=== PATIENT | female | born 1985 | race Caucasian/White ===

== ENCOUNTER 2018-04-01 15:37 | Inpatient (IN) | payer MEDICAID ==
[2018-04-01 18:42] LABS: ADD MAN DIFF? NO
[2018-04-01] MEDS ORDERED: AMPICILLIN 2 GM/NS (PMX) 100 ML (18:45)
[2018-04-01 18:47] LABS: BASOPHILS % 0.2 % (0.0-2.0); EOSINOPHILS % 0.3 % (0.0-7.0); HEMOGLOBIN 13.2 g/dl (12.0-16.0); LYMPHOCYTES # 2.2 10^3/ul (0.8-2.9); LYMPHOCYTES % 16.7 % (15.0-51.0); MEAN CORPUSCULAR HGB CONC 33.8 g/dl (32.0-37.0); MEAN CORPUSCULAR VOLUME 82.6 fl (82.0-101.0); MEAN PLATELET VOLUME 10.6 fl (7.4-10.4); MONOCYTES % 7.4 % (0.0-11.0); NEUTROPHIL # 9.7 10^3/ul (1.6-7.5); NEUTROPHILS % 74.9 % (39.0-77.0); PLATELET COUNT 376 10^3/UL (140-415); RED BLOOD COUNT 4.72 10^6/ul (4.20-5.40); RED CELL DISTRIBUTION WIDTH 13.2 % (11.5-14.5)
[2018-04-01] MEDS: LACTATED RINGER'S 1,000 ML IV (18:49)
[2018-04-01] MEDS: AMPICILLIN 2 GM/NS (PMX) 100 ML IV (18:50)
[2018-04-01 18:51] LABS: INR 0.91; PROTIME 12.3 Sec (11.9-14.9)
[2018-04-01 18:52] LABS: PARTIAL THROMBOPLASTIN TIME 31.7 Sec (23.0-35.0)
[2018-04-01] MEDS ORDERED: MISOPROSTOL 200 MCG TAB PR (19:00)
[2018-04-01] MEDS ORDERED: IBUPROFEN 600 MG TAB PO (19:00)
[2018-04-01] MEDS ORDERED: BUTORPHANOL 1 MG INJ IV (19:00)
[2018-04-01] MEDS ORDERED: LIDOCAINE 1% (MPF) 30 ML INJ INJ (19:00)
[2018-04-01] MEDS ORDERED: OXYTOCIN 30 UNITS/LR 500 ML IV (19:00)
[2018-04-01] MEDS ORDERED: CARBOPROST 250 MCG INJ IM (19:00)
[2018-04-01] MEDS ORDERED: METHYLERGONOVINE 0.2 MG INJ IM (19:00)
[2018-04-01] MEDS: BUTORPHANOL 2 MG INJ IV (19:08)
[2018-04-01] MEDS: AMPICILLIN 1 GM/NS (PMX) 50 ML IV (22:44)
[2018-04-02] MEDS: LACTATED RINGER'S 1,000 ML IV ×2 (00:26→04:06)
[2018-04-02] MEDS ORDERED: FENTAnyl 2MCG/ML-ROPIV 0.2% 100 ML (00:54)
[2018-04-02] MEDS ORDERED: FENTAnyl 2MCG/ML-ROPIV 0.2% 100 ML BAG EPI (01:30)
[2018-04-02] MEDS ORDERED: ONDANSETRON 4 MG INJ IV ×2 (01:30→12:30)
[2018-04-02] MEDS ORDERED: DIPHENHYDRAMINE 50 MG INJ IV (01:30)
[2018-04-02] MEDS ORDERED: NALOXONE (0.4 MG/ML) INJ IV (01:30)
[2018-04-02] MEDS: AMPICILLIN 1 GM/NS (PMX) 50 ML IV ×2 (02:59→06:44)
[2018-04-02] MEDS: BUTORPHANOL 2 MG INJ IV (04:13)
[2018-04-02] MEDS: OXYTOCIN 30 UNITS/LR 500 ML IV ×3 (10:29→16:28)
[2018-04-02] MEDS ORDERED: OXYCODONE/ASPIRIN (4.88/325) TAB PO ×2 (12:30)
[2018-04-02] MEDS ORDERED: ACETAMINOPHEN 325 MG TAB PO (12:30)
[2018-04-02] MEDS ORDERED: HYDROCODONE/APAP (5/325) TAB PO ×2 (12:30)
[2018-04-02] MEDS: IBUPROFEN 600 MG TAB PO ×3 (12:30→23:34)
[2018-04-02] MEDS: WITCH HAZEL/GLYCERIN PAD PR (14:43)
[2018-04-02] MEDS: LANOLIN 7 GM TUBE TOP (14:44)
[2018-04-02] MEDS: BENZOCAINE 20% 56 ML SPRAY TOP (14:44)
[2018-04-02 15:08] LABS: RAPID PLASMA REAGIN NONREACTIVE (NR)
[2018-04-02 19:43] LABS: HEPATITIS B SURFACE ANTIGEN NEGATIVE (NEGATIVE)
[2018-04-02] MEDS: SENNA/DOCUSATE NA (8.6MG/50MG) TAB PO (21:13)
[2018-04-03] MEDS: IBUPROFEN 600 MG TAB PO ×3 (05:38→17:52)
[2018-04-03 08:09] LABS: ADD MAN DIFF? NO
[2018-04-03 08:17] LABS: WHITE BLOOD COUNT 16.9 10^3/ul (4.8-10.8)
[2018-04-03 08:17] LABS: BASOPHIL # 0.1 10^3/ul (0.0-0.1); BASOPHILS % 0.3 % (0.0-2.0); EOSINOPHILS # 0.2 10^3/ul (0.0-0.5); EOSINOPHILS % 1.1 % (0.0-7.0); HEMATOCRIT 35.4 % (37.0-47.0); HEMOGLOBIN 11.8 g/dl (12.0-16.0); LYMPHOCYTES # 3.2 10^3/ul (0.8-2.9); LYMPHOCYTES % 18.9 % (15.0-51.0); MEAN CORPUSCULAR HEMOGLOBIN 27.9 pg (29.0-33.0); MEAN CORPUSCULAR HGB CONC 33.3 g/dl (32.0-37.0); MEAN CORPUSCULAR VOLUME 83.7 fl (82.0-101.0); MEAN PLATELET VOLUME 10.3 fl (7.4-10.4); MONOCYTE # 1.2 10^3/ul (0.3-0.9); NEUTROPHIL # 12.2 10^3/ul (1.6-7.5); NEUTROPHILS % 72.1 % (39.0-77.0); PLATELET COUNT 317 10^3/UL (140-415); RED BLOOD COUNT 4.23 10^6/ul (4.20-5.40); RED CELL DISTRIBUTION WIDTH 13.9 % (11.5-14.5)
[2018-04-03] MEDS: SENNA/DOCUSATE NA (8.6MG/50MG) TAB PO ×2 (10:09→21:47)
[2018-04-03] MEDS: INFLUENZA VIRUS VACCINE 0.5 ML (DISPENSING) IM* (10:10)
[2018-04-04] MEDS: IBUPROFEN 600 MG TAB PO ×3 (00:08→12:29)
[2018-04-04] MEDS: SENNA/DOCUSATE NA (8.6MG/50MG) TAB PO (09:00)
[2018-04-04] MEDS: MEASLES,MUMPS,RUBELLA VACCINE INJ SC* (09:00)
[2018-04-04] MEDS: DIPHTH/TET/ACEL PERTUSS (ADULT) 0.5 ML VIAL IM* (12:31)
== END 2018-04-04 13:29 | disposition home or self-care (01) | DRG 807 ==
LOC: OBT 15:37 → L-D 04-02 00:18 → PP1 04-02 12:08 → OBT 16:17 → L-D 16:17
PROVIDERS: Obstetrics & Gynecology
PROC: 10E0XZZ Delivery of Products of Conception, External Approach (ICD-10-PCS; principal; 2018-04-02)
PROC: 3E033VJ Introduction of Other Hormone into Peripheral Vein, Percutaneous Approach (ICD-10-PCS; 2018-04-02)
PROC: 0HQ9XZZ Repair Perineum Skin, External Approach (ICD-10-PCS; 2018-04-02)
DX: O70.0 First degree perineal laceration during delivery (principal); Z37.0 Single live birth; Z3A.39 39 weeks gestation of pregnancy
CPT/HCPCS: 62319; 85025; 85610; 85730; 86592; 86900; 86901; 87340; 90686; 90715